=== PATIENT | female | born 2000 | race Caucasian/White ===

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

== ENCOUNTER 2022-03-07 15:03 | Emergency (ER) | payer OTHER ==
[~2022-03-07] VITALS: Ht 167.6 cm; Wt 102.1 kg
== END 2022-03-07 16:03 | disposition home or self-care (01) ==
LOC: ED 15:03
DX: Z34.91 Encounter for supervision of normal pregnancy, unspecified, first trimester (principal)